=== PATIENT | female | born 1980 | race Caucasian/White ===

== ENCOUNTER 2024-08-20 22:37 | Emergency (ER) | payer SELFPAY ==
[2024-08-20] MEDS ORDERED: NA CHLORIDE 0.9% 1,000 ML ONE (23:11)
[2024-08-21 00:09] LABS: Absolute Basophils 0.1 K/uL (0-0.5); Absolute Eosinophils 0.1 K/uL (0-0.5); Absolute Lymphocytes (CBC) 2.8 K/uL (0.7-4.9); Absolute Monocytes 0.9 K/uL (0.1-1.3); Absolute Neutrophil 6.9 K/uL (1.8-8.0); Basophils % 0.5 % (0-1.3); Eosinophils % 1.3 % (0-4.4); Hematocrit 44.4 % (36.0-45.0); Hemoglobin 15.6 g/dL (12.0-15.0); Lymphocytes % 25.7 % (15.3-44.8); MCH 30.3 pg (27.0-35.0); MCHC 35.3 g/dL (32.0-36.0); MCV 85.8 fL (80-100); MPV 8.4 fL (7.6-11.3); Neutrophils % 64.5 % (41.7-73.7); Nucleated Red Blood Cells % 0.1 % (0-0); Platelets 322 thou/uL (152-406); RBC Red Blood Cell Count 5.17 M/uL (3.86-4.86)
--- NOTE | 2024-08-21 00:19 | RAD REPORT ---
EXAM: CT Head/Brain Without Contrast HISTORY: Numbness COMPARISON: None TECHNIQUE: Head/brain axial images acquired without contrast. Coronal and sagittal reformats created. Exam performed according to departmental dose-optimization program which includes automated exposure control, adjustment of mA and/or kV according to patient size, and/or use of iterative recon struction technique. FINDINGS: No midline shift, mass effect, intracranial hemorrhage, or hydrocephalus. Brain parenchyma unremarkable. Paranasal sinuses clear. Mastoid air cells clear. No skull fracture or significant skull lesion. IMPRESSION: Unremarkable CT head/brain without contrast. Electronically signed by: Nils Meléndez MD 08/21/2024 12:15 AM CDT RP Due to temporary technical issues with the PACS/[employer] reporting system, reports are being endy d by the in-house radiologist without review as a courtesy to ensure prompt reporting the interpreting radiologist is fully responsible for the content of the report. Transcribed Date/Time: 08/21/2024 12:18 AM
[2024-08-21 00:21] LABS: Barbiturates NEGATIVE (NEGATIVE); Benzodiazepines NEGATIVE (NEGATIVE); Cocaine NEGATIVE (NEGATIVE); METHAMPHETAM POSITIVE (NEGATIVE); Methadone NEGATIVE (NEGATIVE); Opiates NEGATIVE (NEGATIVE); Phencyclidine NEGATIVE (NEGATIVE); THC Cannibis POSITIVE (NEGATIVE)
[2024-08-21 00:23] LABS: Specific Gravity 1.007 (1.005-1.030); Urine Bacteria 20-50 /HPF (<20); Urine Bilirubin NEGATIVE (Negative); Urine Blood Negative (Negative); Urine Clarity Extremely Turbid (Clear); Urine Color Light-Yellow (Yellow); Urine Culture Reflex Order NOT NEEDED; Urine Glucose NEGATIVE (Negative); Urine Ketones 1+ (Negative); Urine Microscopic Reflex YN ORDER UMIC; Urine Mucus 4+ /HPF (None Seen); Urine Nitrite NEGATIVE (Negative); Urine Protein NEGATIVE (Negative); Urine RBC None Seen /HPF (None Seen); Urine Urobilinogen Normal (Normal); Urine WBC <5 /HPF (<5); Urine pH 5.5 (5.0-7.0)
[2024-08-21 00:27] LABS: Albumin 3.7 g/dL (3.4-5.0); Anion Gap 11.3 mEq/L (5.0-15.0); Bilirubin Direct 0.2 mg/dL (0-0.2); Bilirubin Indirect, Calculated 0.9 mg/dL (0.2-0.8); Bilirubin Total 1.1 mg/dL (0.2-1.0); Globulin 3.6 g/dL (2.3-3.5); Protein, Total 7.3 g/dL (6.4-8.2); Troponin High Sensitivity 3.1 pg/mL (<58.9)
[2024-08-21 00:31] LABS: Magnesium 1.8 mg/dL (1.6-2.4); Potassium 3.3 mEq/L (3.5-5.1)
[2024-08-21] MEDS ORDERED: POTASSIUM 25 MEQ EFFERV TAB ONE (00:37)
[2024-08-21] MEDS ORDERED: NITROFURAN MACRO 100 MG CAP PO ONE (00:37)
--- NOTE | 2024-08-21 00:43 | ER ---
Nurse's Notes [facility] Name: Nkechi Tyson Age: 44 yrs Sex: Female : 1980 Arrival Date: 08/20/2024 Time: 22:37 Bed 8 Private MD: Diagnosis: UTI/ Urinary tract infection, site not specified;Hypokalemia Presentation: 08/20 22:47 Chief complaint: Patient states: BEGAN HAVING RT/LT ARM WEAKNESS AND LT THUMB NOT dd2 STRAIGHTENING OUT, DROPPING ITEMS FROM LT HAND, AND FEELS LIKE HER TEETH, AND LIPS ARE 'ASLEEP'. REPORTS THE AIR WAS OUT AT WORK ALSO. Coronavirus screen: At this time, the client does not indicate any symptoms associated with coronavirus-19. Ebola Screen: No symptoms or risks identified at this time. Initial Sepsis Screen: Does the patient meet any 2 criteria? No. Patient's initial sepsis screen is negative. Does the patient have a suspected source of infection? No. Patient's initial sepsis screen is negative. Risk Assessment: Do you want to hurt yourself or someone else? Patient reports no desire to harm self or others. Onset of symptoms was August 20, 2024. 22:47 Method Of Arrival: Ambulatory dd2 22:47 Acuity: ANH 3 dd2 Triage Assessment: 22:50 General: Appears in no apparent distress. Behavior is calm, cooperative, appropriate dd2 for age. Pain: Denies pain. Neuro: Level of Consciousness is awake, alert, obeys commands, Oriented to person, place, time, situation, Appropriate for age Gait is steady, Speech is normal, Facial symmetry appears normal. 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 - Infectious Disease History:: Denies. - Social history:: Smoking status: Patient/guardian denies using tobacco, the patient reports quitting approximately 8 years ago. Screenin:20 [facility] ED Fall Risk Assessment (Adult) History of falling in the last 3 months, bm8 including since admission No falls in past 3 months (0 pts) Confusion or Disorientation No (0 pts) Intoxicated or Sedated No (0 pts) Impaired Gait No (0 pts) Mobility Assist Device Used No (0 pt) Altered Elimination No (0 pt) Score/Fall Risk Level 0 - 2 = Low Risk Oriented to surroundings, Maintained a safe environment, Educated pt \T\ family on fall prevention, incl call for assistance when getting out of bed, Assessed \T\ reinforced patient's understanding of fall precautions, Hourly rounding (assess needs \T\ fall precautionary measures) done, Used ambulatory aids as needed (educated on \T\ assisted with), Used gait belt as appropriate. Abuse screen: Denies threats or abuse. Nutritional screening: No deficits noted. Tuberculosis screening: No symptoms or risk factors identified. Assessment: 23:58 Reassessment: Patient appears in no apparent distress at this time. Patient and/or bm8 family updated on plan of care and expected duration. Pain level reassessed. Patient is alert, oriented x 3, equal unlabored respirations, skin warm/dry/pink. Patient denies pain at this time. Patient states feeling better. Patient states symptoms have improved. 08/21 00:54 Reassessment: Patient appears in no apparent distress at this time. Patient and/or bm8 family updated on plan of care and expected duration. Pain level reassessed. Patient is alert, oriented x 3, equal unlabored respirations, skin warm/dry/pink. Patient denies pain at this time. Patient states feeling better. Patient states symptoms have improved. Vital Signs: 08/20 22:47 BP 150 / 95; Pulse 76; Resp 16; Temp 98.4; Pulse Ox 100% on R/A; Weight 74.84 kg; dd2 Height 5 ft. 6 in. ; Pain 0/10; 23:58 BP 133 / 79; Pulse 69; Resp 20; Temp 98.4; Pulse Ox 100% ; Pain 0/10; bm8 08/21 00:54 BP 121 / 77; Pulse 56; Resp 16; Temp 98.4; Pulse Ox 99% ; Pain 0/10; bm8 08/20 22:47 Body Mass Index 26.63 (74.84 kg, 167.64 cm) dd2 08/20 22:47 Pain Scale: Adult dd2 23:58 Pain Scale: Adult bm8 08/21 00:54 Pain Scale: Adult bm8 [place] Coma Score: 08/20 23:20 Eye Response: spontaneous(4). Motor Response: obeys commands(6). Verbal Response: bm8 oriented(5). Total: 15. 23:58 Eye Response: spontaneous(4). Motor Response: obeys commands(6). Verbal Response: bm8 oriented(5). Total: 15. 08/21 00:54 Eye Response: spontaneous(4). Motor Response: obeys commands(6). Verbal Response: bm8 oriented(5). Total: 15. ED Course: 08/20 22:39 Patient arrived in ED. mr 22:44 Aster Washington PA-C is PHCP. sb4 22:44 Maury Tierney MD is Attending Physician. sb4 22:50 Triage completed. dd2 22:50 Arm band placed on right wrist. dd2 22:57 Elliot Adrian, RN is Primary Nurse. bm8 23:05 Radiology exam delayed due to test not completed at this time. ls3 23:19 Basic Metabolic Panel Sent. bl1 23:19 CBC with Diff Sent. bl1 23:19 LFT's Sent. bl1 23:19 Magnesium Sent. bl1 23:19 Troponin HS Sent. bl1 23:19 Initial lab(s) drawn, by me, sent to lab. EKG done, by ED staff, reviewed by Aster Washington PA-C. Inserted saline lock: 20 gauge in right antecubital area, using aseptic technique. Blood collected. Flushed with 10 mL NS. Patient maintains SpO2 saturation greater than 95% on room air. 23:20 Patient has correct armband on for positive identification. Bed in low position. Call bm light in reach. Side rails up X 1. Adult w/ patient. Client placed on continuous cardiac and pulse oximetry monitoring. NIBP monitoring applied. cardiac monitor on. Pulse ox on. NIBP on. Door closed. Noise minimized. Warm blanket given. Pillow given. Verbal reassurance given. Head of bed elevated. 23:20 No provider procedures requiring assistance completed. bm8 23:38 Head Brain Wo Cont CT In Process Unspecified. EDMS 08/21 00:54 Provided Education on: post er care. bm8 00:54 IV discontinued, intact, bleeding controlled, No redness/swelling at site. Pressure bm8 dressing applied. Administered Medications: 08/20 23:05 Drug: NS 0.9% IV 1000 ml IV at 1000 ml once; to be given as a bolus over 60 minutes bl1 Route: IV; Rate: 1000 ml; Site: right antecubital; 08/21 00:54 Follow up: Response: No adverse reaction; IV Status: Completed infusion bm8 00:54 Drug: Potassium PO Effervescent Tablet 25 mEq PO once; dissolve in 4 ounces of water or bm8 juice Route: PO; 00:55 Follow up: Response: No adverse reaction bm8 00:54 Drug: Nitrofurantoin PO 100 mg PO once; administer with food Route: PO; bm8 00:55 Follow up: Response: No adverse reaction bm8 Medication: 08/20 23:20 VIS not applicable for this client. bm8 Outcome: 08/21 00:42 Discharge ordered by . sb4 00:54 Discharged to home ambulatory, with family, bm8 00:54 Condition: stable 00:54 Discharge instructions given to patient, family, Instructed on discharge instructions, follow up and referral plans. no drinking with medication, no driving heavy equipment, medication usage, Demonstrated understanding of instructions, follow-up care, medications, Prescriptions given X 1, 00:58 Patient left the ED. [email or web address] Signatures: Dispatcher [employer] EDID DustyLaverne, Henrique Duenas mr MarreroXimena ls3 Dontrell Peters RN RN jj7 Aster Washington, PA-C PARoseanne sb4 Elliot Adrian RN RN bm8 CATALINA PADILLA RN RN dd2 Juana Esparza RN RN bl1 Corrections: (The following items were deleted from the chart) 08/20 22:51 22:50 Allergies: No Known Allergies; dd2 dd2 08/21 00:56 00:54 Discharge instructions given to patient, family, Instructed on discharge bm8 instructions, follow up and referral plans. no drinking with medication, no driving heavy equipment, medication usage, Demonstrated understanding of instructions, follow-up care, medications, Prescriptions given X 2, bm8
--- NOTE | 2024-08-21 00:43 | EDPHYS ---
Physician Documentation [facility] Name: Nkechi Tyson Age: 44 yrs Sex: Female : 1980 Arrival Date: 08/20/2024 Time: 22:37 Bed 8 Private MD: ED Physician Maury Tierney HPI: 08/20 23:16 This 44 yrs old Female presents to ER via Ambulatory with complaints of Body Numbness. sb4 23:16 Patient states that she started experiencing numbness and tingling sensation in her sb4 face and arms while at work this evening. 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 She states that her symptoms are slowly improving, but she is concerned. Denies any weakness, difficulty speaking or swallowing. 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 - Infectious Disease History:: Denies. - Social history:: Smoking status: Patient/guardian denies using tobacco, the patient reports quitting approximately 8 years ago. ROS: 23:16 Constitutional: Negative for fever, chills, and weight loss, sb4 23:16 Neuro: Positive for tingling, of the face, right arm and left arm, Exam: 23:17 Constitutional: This is a well developed, well nourished patient who is awake, alert, sb4 and in no acute distress. Head/Face: Normocephalic, atraumatic. Eyes: Extra-ocular motions intact. Periorbital areas with no swelling, redness, or edema. ENT: Mucous membranes moist. Cardiovascular: Regular rate and rhythm with a normal S1 and S2. Respiratory: No increased work of breathing, no retractions or nasal flaring. Abdomen/GI: Soft, non-tender, no distension. Skin: Warm, dry with normal turgor. Normal color with no rashes, no lesions, and no evidence of cellulitis. MS/ Extremity: Pulses equal, no cyanosis. Neurovascular intact. Full, normal range of motion. Neuro: Awake and alert, GCS 15, oriented to person, place, time, and situation. Motor strength 5/5 in all extremities. Sensory grossly intact. Vital Signs: 22:47 BP 150 / 95; Pulse 76; Resp 16; Temp 98.4; Pulse Ox 100% on R/A; Weight 74.84 kg; dd2 Height 5 ft. 6 in. ; Pain 0/10; 23:58 BP 133 / 79; Pulse 69; Resp 20; Temp 98.4; Pulse Ox 100% ; Pain 0/10; bm8 08/21 00:54 BP 121 / 77; Pulse 56; Resp 16; Temp 98.4; Pulse Ox 99% ; Pain 0/10; bm8 08/20 22:47 Body Mass Index 26.63 (74.84 kg, 167.64 cm) dd2 08/20 22:47 Pain Scale: Adult dd2 23:58 Pain Scale: Adult bm8 08/21 00:54 Pain Scale: Adult bm8 [place] Coma Score: 08/20 23:20 Eye Response: spontaneous(4). Motor Response: obeys commands(6). Verbal Response: bm8 oriented(5). Total: 15. 23:58 Eye Response: spontaneous(4). Motor Response: obeys commands(6). Verbal Response: bm8 oriented(5). Total: 15. 08/21 00:54 Eye Response: spontaneous(4). Motor Response: obeys commands(6). Verbal Response: bm8 oriented(5). Total: 15. MDM: 08/20 22:45 Medical Screening Exam initiated sb4 08/21 00:24 Differential diagnosis: anxiety, hyperventilation, dehydration, electrolyte sb4 abnormality, anemia, drug abuse, CVA. 00:43 Data reviewed: vital signs, nurses notes, lab test result(s), radiologic studies, and sb4 as a result, I will discharge patient. Counseling: I had a detailed discussion with the patient and/or guardian regarding the historical points, exam findings, and any diagnostic results supporting the discharge/admit diagnosis, lab results, radiology results, the need for outpatient follow up, for definitive care, to return to the emergency department if symptoms worsen or persist or if there are any questions or concerns that arise at home. 08/20 23:02 Order name: Basic Metabolic Panel; Complete Time: 00:32 sb4 23 23:02 Order name: CBC with Diff; Complete Time: 00:19 sb08/20 23:02 Order name: LFT's; Complete Time: 00:32 sb08/20 23:02 Order name: Magnesium; Complete Time: 00:32 sb08/20 23:02 Order name: Troponin HS; Complete Time: 00:32 sb08/20 23:02 Order name: Test, Urine 08/20 23:02 Order name: UDS; Complete Time: 00:22 08/20 23:02 Order name: UA Rfx Se Cult if indicated; Complete Time: 00:23 sb08/20 23:02 Order name: Head Brain Wo Cont CT 08/20 23:02 Order name: Cardiac monitoring; Complete Time: 23:16 08/20 23:02 Order name: EKG - Nurse/Tech; Complete Time: 23:16 08/20 23:02 Order name: IV Saline Lock; Complete Time: 23:18 08/20 23:02 Order name: Labs collected and sent; Complete Time: 23:19 08/20 23:02 Order name: O2 Per Protocol; Complete Time: 23:16 sb08/20 23:02 Order name: O2 Sat Monitoring; Complete Time: 23:16 sb4 EC/23 23:12 Rate is 70 beats/min. Rhythm is regular, Normal Sinus Rhythm. DC interval is normal at sb4 132 msec. QRS interval is normal at 80 msec. QT interval is normal at 404 msec. No Q waves. T waves are Normal. No ST changes noted. Clinical impression: Normal ECG. Interpreted by me. Reviewed by me. Administered Medications: 23:05 Drug: NS 0.9% IV 1000 ml IV at 1000 ml once; to be given as a bolus over 60 minutes bl1 Route: IV; Rate: 1000 ml; Site: right antecubital; 08/21 00:54 Follow up: Response: No adverse reaction; IV Status: Completed infusion bm8 00:54 Drug: Potassium PO Effervescent Tablet 25 mEq PO once; dissolve in 4 ounces of water or bm8 juice Route: PO; 00:55 Follow up: Response: No adverse reaction bm8 00:54 Drug: Nitrofurantoin PO 100 mg PO once; administer with food Route: PO; bm8 00:55 Follow up: Response: No adverse reaction bm8 Disposition: 07:21 Co-signature as Attending Physician, Maury Tierney MD I agree with the assessment sp4 and plan of care. I reviewed the patient's care provided by the Advanced Practice Provider and agree with the diagnosis and treatment plan. Disposition Summary: 08/21/24 00:42 Discharge Ordered Notes: Location: Home sb4 Problem: new sb4 Symptoms: have improved sb4 Condition: Stable sb4 Diagnosis - UTI/ Urinary tract infection, site not specified sb4 - Hypokalemia sb4 Followup: sb4 - With: Emergency Department - When: As needed - Reason: Trouble breathing, Worsening of condition Discharge Instructions: - Discharge Summary Sheet sb4 - Urinary Tract Infection, Adult, Jydh-rm-Iago sb4 - Dehydration, Adult, Rydl-qu-Lmvt sb4 - Hypokalemia sb4 Forms: - Antibiotic Education sb4 - Patient Portal Instructions sb4 - Leadership Thank You Letter sb4 Prescriptions: - Macrobid 100 mg Oral Capsule - take 1 capsule ORAL route every 12 hours for 7 days; 14 capsule; Refills: 0, sb4 Product Selection Permitted Signatures: Dispatcher [employer] EDAster Luna PA-C PARoseanne sb4 Maury Tierney MD MD sp4 Elliot Adrian RN RN bm8 CATALINA PADILLA, RN RN dd2 Juana Esparza RN RN bl1 Corrections: (The following items were deleted from the chart) 08/20 22:51 22:50 Allergies: No Known Allergies; dd2 dd2 23:03 23:03 BASIC METABOLIC PANEL+C.LAB.BRZ ordered. EDMS EDMS 23:03 23:03 CBC+H.LAB.BRZ ordered. EDMS EDMS 23:03 23:03 HEPATIC FUNCTION+C.LAB.BRZ ordered. EDMS EDMS 23:03 23:03 MAGNESIUM+C.LAB.BRZ ordered. EDMS EDMS 23:03 23:03 Troponin High Sensitivity+C.LAB.BRZ ordered. EDMS EDMS 23:03 23:03 Test, Urine+UC.LAB.BRZ ordered. EDMS EDMS 23:03 23:03 URINE DRUG SCREEN+UC.LAB.BRZ ordered. EDMS EDMS 23:03 23:03 UA Rfx Se Cult if indicated+U.LAB.BRZ ordered. EDMS EDMS : 23:03 Head Brain Wo Cont+CT.RAD.BRZ ordered. EDMS EDMS
[2024-08-21 01:10] LABS: Specific Gravity 1.007 (1.005-1.030)
[2024-08-21 01:24] VITALS: TEMP 98.4
[2024-08-21 01:28] VITALS: BP 121/77; O2SAT 99
--- NOTE | 2024-08-24 12:28 | EKG ---
Test Date: 2024-08-20 Test Time: 23:06:49 Package Sealer: MARIA C MEASUREMENT RESULTS: Intervals: Rate: 70 RI: 132 QRSD: 80 QT: 404 QTc: 436 Mcdaniel: P: 54 RI: 132 QRS: 22 T: 12 INTERPRETIVE STATEMENTS: Normal sinus rhythm Normal ECG No previous ECG available for comparison Electronically Signed On 08-24-24 12:22:02 CDT by Phong Gold
== END 2024-08-21 00:58 | disposition home or self-care (01) ==
LOC: ER 22:37
DX: N39.0 Urinary tract infection, site not specified (principal); E87.6 Hypokalemia
CPT/HCPCS: 36415; 70450; 80048; 80076; 80307; 81001; 81025; 83735; 84484; 85025; 93005; 96360; 96361; 99285; J7030